=== PATIENT | female | born 1940 | race Caucasian/White ===

== ENCOUNTER 2024-02-03 13:43 | Emergency (ER) | payer MEDICARE ==
[2024-02-03 15:21] LABS: Bilirubin Negative (Negative); Blood, Urine Negative (Negative); Clarity Clear (Clear); Glucose, Urine (Dipstick) Negative (Negative); Ketone, Urine Negative (Negative); Leukocyte Small (Negative); Nitrite Negative (Negative); Protein, Urine (Dipstick) Negative (Neg-Trace); Urobilinogen 0.2 mg/dL (Less than 2); pH, Urine 5.5 (5.0-9.0)
[2024-02-03 15:23] LABS: CAUTI Indications for Culture Dysuria,urgency,freq; Specific Gravity, Urine 1.008 (1.005-1.030); Squamous Epithelial 0-3 HPF (0-3); WBC/HPF 0-3 HPF (0-3)
[2024-02-03 15:24] LABS: Urine Culture Reflex No No
[2024-02-03 15:38] LABS: #Basophils 0.1 thou/uL (0.0-0.2); #Eosinophils 0.2 thou/uL (0.0-0.7); #Lymphocytes 1.8 thou/uL (1.20-3.40); #Monocytes 0.6 thou/uL (0.11-0.59); %Eosinophils 2.2 % (0.0-10.0); %Lymphocytes 18.2 % (21.0-51.0); %Monocytes 6.5 % (0.0-10.0); %Neutrophils 72.2 % (42.0-75.0); Hematocrit 45.9 % (36.0-47.0); Hemoglobin 14.4 g/dL (12.0-16.0); Mean Corpuscular HGB CONC 31.4 g/dL (32.0-36.0); Mean Corpuscular Volume 95.3 fl (78.0-98.0); Mean Platelet Volume 7.6 fL (7.4-10.4); Platelet Count 286 10x3/uL (130-400); RBC Distribution Width 13.5 % (11.5-14.5); Red Blood Cell (RBC) Count 4.82 mill/uL (4.20-5.40); White Blood Cell (WBC) Count 9.6 10x3/uL (4.8-10.8)
[2024-02-03 16:06] LABS: ALT (SGPT) 23 U/L (8-55); AST (SGOT) 22 U/L (5-34); Albumin 4.2 g/dL (3.4-4.8); Alkaline Phosphatase 99 U/L (40-110); Anion Gap 16 mmol/L (10-20); BUN (Urea Nitrogen) 21 mg/dL (9.8-20.1); Bilirubin, Total 0.2 mg/dL (0.2-1.2); Calc. Creatinine Clearance 0 mL/min (70-130); Calcium 9.3 mg/dL (7.8-10.44); Carbon Dioxide 26 mmol/L (23-31); Chloride 103 mmol/L (98-107); Estimated GFR 45; Globulin 3.5 g/dL (2.4-3.5); Glucose 101 mg/dL (83-110); Potassium 4.8 mmol/L (3.5-5.1); Protein, Total 7.7 g/dL (5.8-8.1); Sodium 140 mmol/L (136-145)
[2024-02-03] MEDS ORDERED: Sodium Chloride 0.9% 250 ML 500 ML ONE (16:28)
[2024-02-03 16:42] LABS: PTT 30.6 sec (22.9-36.1); Prothrombin Time 13.3 sec (12.0-14.7)
[2024-02-03 16:46] LABS: Troponin I Less than 0.010 ng/mL (< 0.028)
== END 2024-02-03 22:00 | disposition short-term general hospital (02) ==
LOC: NAV ERS 13:43
DX: R42 Dizziness and giddiness (principal); R41.82 Altered mental status, unspecified; H53.2 Diplopia; E11.9 Type 2 diabetes mellitus without complications
CPT/HCPCS: 70450; 71045; 80053; 81001; 84443; 84484; 85025; 85610; 85730; 93005; 96360; J7050